=== PATIENT | female | born 1960 | race Caucasian/White ===

== ENCOUNTER 2016-03-04 07:22 | Emergency (ER) | payer BC ==
[~2016-03-04] VITALS: Wt 69.0 kg
[2016-03-04] MEDS ORDERED: ZOLP10TA5 PO (07:48)
[2016-03-04] MEDS ORDERED: SUMA100T4 PO (07:48)
[2016-03-04] MEDS ORDERED: NORE5TAB5 PO (07:48)
[2016-03-04] MEDS ORDERED: IBUP800T25 PO (07:48)
[2016-03-04] MEDS ORDERED: LORA1TAB PO (07:51)
[2016-03-04] MEDS ORDERED: HYDR12.58 PO (07:51)
[2016-03-04] MEDS ORDERED: VENL75CA89 PO (07:51)
[2016-03-04] MEDS ORDERED: KETOROLAC 30 MG INJ IV STA (08:15)
--- NOTE | 2016-03-04 08:22 | ERD ---
ER Documentation Chief Complaint Date/Time DATE: 03/04/16 TIME: 08:18 Chief Complaint migraine headache for 2 days. no neuro deficit. nausea no vomiting HPI This patient is a 48-year-old female with a history of migraines presenting to the emergency department for migraine headache which is been ongoing for the past 2 days. The patient has taken sumatriptan and at home daily but had very mild relief of her symptoms. She rates her pain currently a 9 out of 10 on the pain scale. She states she is slightly sensitive to light which is normal for her when she has migraines. She states this episode is exactly the same as past migraine episodes. She has had no nausea, vomiting, diarrhea, severe neck pain, confusion, fevers, chills, or other symptoms at this time. ROS All systems reviewed and are negative except as per history of present illness. Medications Home Meds Active Scripts Naproxen* (Naprosyn*) 500 Mg Tablet, 500 MG PO BID Y for PAIN AND/OR INFLAMMATION, #20 TAB Prov:JOB SOMMERS PA-C 03/04/16 Reported Medications Lorazepam* (Lorazepam*) 1 Mg Tablet, 1 MG PO TID Y for ANXIETY, #30 TAB 03/04/16 Hydrochlorothiazide* (Hydrochlorothiazide*) 12.5 Mg Tablet, 12.5 MG PO DAILY, # 30 TAB 03/04/16 Venlafaxine Hcl* (Venlafaxine Hcl ER*) 75 Mg Cap.er.24h, 75 MG PO DAILY, CAP 03/04/16 Sumatriptan Succinate* (Sumatriptan Succinate*) 100 Mg Tablet, 100 MG PO BID Y for MIGRAINE HEADACHE, TAB May repeat after 2 hours if needed; MAX 200 mg/24 hours 03/04/16 Ibuprofen* (Ibuprofen*) 800 Mg Tablet, 800 MG PO Q8, TAB 03/04/16 Norethindrone Acetate (Norethindrone Acetate) 5 Mg Tablet, 5 MG PO, TAB 03/04/16 Zolpidem Tartrate* (Zolpidem Tartrate*) 10 Mg Tablet, 10 MG PO QHS Y for INSOMNIA, #30 TAB 03/04/16 Allergies Allergies: Coded Allergies: No Known Allergy (Unverified , 03/04/16) PMhx/Soc Medical and Surgical Hx: pt denies Surgical Hx History of Surgery: No Anesthesia Reaction: No Hx Neurological Disorder: Yes (MIGRANE HEADACHES) Hx Cardiac Disorders: Yes (HTN) Hx Psychiatric Problems: Yes (DEPRESSION, ANXIETY) Hx Miscellaneous Medical Probl: No Hx Alcohol Use: No Hx Substance Use: No Hx Tobacco Use: No Smoking Status: Former smoker FmHx Noncontributory for chief complaint Physical Exam Vitals Vital Signs Date Time Temp Pulse Resp B/P Pulse Ox O2 Delivery O2 Flow Rate FiO2 03/04/16 09:57 97.9 62 18 141/83 98 Room Air 03/04/16 07:23 97.9 91 18 179/95 98 Physical Exam INITIAL VITAL SIGNS: Reviewed by me. GENERAL: Alert and interactive. No acute distress. HEAD: Head is normocephalic and atraumatic. EYES: EOMI. No scleral icterus. No conjunctival injection. ENT: Moist mucosa. NECK: Supple. Full range of motion. No meningeal signs. RESPIRATORY: Normal respiratory effort. Clear breath sounds bilaterally. No wheezing, rales, or rhonchi. CV: Regular rate and rhythm. Normal S1 S2. No S3 or S4. No murmurs. ABDOMEN: Soft, non-distended, non-tender. No guarding. No rebound. No masses. EXTREMITIES: No deformity. SKIN: Warm and dry. NEUROLOGIC: Alert and oriented x 4. Speech is normal. Moves all extremities equally. No motor or sensory deficits noted. Results 24 hrs Current Medications Medications (Trade) Dose Ordered Sig/Brisa Route PRN Reason Start Time Stop Time Status Last Admin Dose Admin Sodium Chloride (NS) 1,000 ml @ 1,000 mls/hr Q1H ONCE IV 03/04/16 08:30 03/04/16 09:29 DC 03/04/16 08:38 Diphenhydramine HCl (Benadryl) 12.5 mg ONCE ONCE IV 03/04/16 08:30 03/04/16 08:31 DC 03/04/16 08:38 Metoclopramide HCl (Reglan) 10 mg ONCE ONCE IV 03/04/16 08:30 03/04/16 08:31 DC 03/04/16 08:38 Ketorolac Tromethamine (Toradol) 30 mg ONCE STAT IV 03/04/16 08:15 03/04/16 08:18 DC 03/04/16 08:38 Procedures/MDM 48-year-old female presents to the department secondary to complaints of migraine headache ongoing for the past 2 days. On physical exam there are no neurological deficits or meningeal signs. The patient is afebrile in the department. Blood pressure slightly elevated at 179/95 which I believe can be attributed to her pain and history of high blood pressure. We will recheck blood pressure in the department. I have started IV fluids with 1 L of normal saline as well as 30 mg IV Toradol, 10 mg IV Reglan, and 12.5 mg IV Benadryl. We will reevaluate the patient once she HAS received therapeutic treatment in the department. On reevaluation at approximately 9:15 AM the patient was feeling much improved and her blood pressure reduced to 141/83. At this time I have very low suspicion for meningitis, CVA, TIA, or other emergencies. The patient's primary diagnosis is migraine and she is stable for outpatient management with naproxen and sumatriptan which she has already been prescribed. The patient's questions and concerns have been addressed. Departure Diagnosis: Primary Impression: Migraine Condition: Stable Additional Instructions: Follow-up with your primary care physician within 1 week. Return to the emergency department immediately should you have any new or worsening symptoms, uncontrolled fevers, or other unexplained symptoms. Take all medications as directed. JOB SOMMERS PA-C Mar 04, 2016 08:22
[2016-03-04] MEDS ORDERED: METOCLOPRAMIDE 10 MG INJ IV ONE (08:30)
[2016-03-04] MEDS ORDERED: DIPHENHYDRAMINE 50 MG INJ IV ONE (08:30)
[2016-03-04] MEDS ORDERED: SOD CHLORIDE 0.9% 1,000 ML IV ONE (08:30)
[2016-03-04] MEDS ORDERED: NAPR-260 PO (09:30)
[2016-03-04 09:57] VITALS: BP 141/83; PULSE 62; RESP 18; TEMP 97.9
== END 2016-03-04 09:59 | disposition home or self-care (01) ==
LOC: FTE 07:22
DX: G43.909 Migraine, unspecified, not intractable, without status migrainosus (principal); I10 Essential (primary) hypertension; Z87.891 Personal history of nicotine dependence
CPT/HCPCS: 96361; 96374; 96375; 99284; J1200; J1885; J2765; J7030

== ENCOUNTER 2018-12-08 19:23 | Emergency (ER) | payer BC ==
[~2018-12-08] VITALS: Ht 160 cm; Wt 74.0 kg
[~2018-12-08 19:23] MED LIST: ESTR1TAB ORAL; HYDR12.58 PO; IBUP-1544 PO; LORA-441 PO; LORA1TAB PO; NAPR-985 PO; NORE5TAB PO; SUMA100T4 PO; TRAM50TA2 PO; VENL75CA89 PO; ZOLP10TA5 PO
[2018-12-08 19:43] VITALS: Ht 160 cm; Wt 74.0 kg
[2018-12-08] MEDS ORDERED: ONDANSETRON (ODT) 4 MG TAB ODT STA (20:57)
[2018-12-08] MEDS ORDERED: HYDROmorphONE 0.5 MG/0.5 ML SYG IM STA (20:57)
[2018-12-08 23:28] VITALS: BP 139/66; PULSE 66; RESP 20
== END 2018-12-08 23:28 | disposition home or self-care (01) ==
LOC: FTE 19:23
DX: M77.32 Calcaneal spur, left foot (principal); M25.561 Pain in right knee; M25.562 Pain in left knee; I10 Essential (primary) hypertension; M77.31 Calcaneal spur, right foot
CPT/HCPCS: 73562; 73600; 96372; 99284; J1170